=== PATIENT | female | born 2000 | race Two or more races ===

== ENCOUNTER 2024-06-24 06:30 | Outpatient (REF) | payer OTHER, SELFPAY ==
--- NOTE | ~2024-06-24 | US_ITS ---
CLINICAL HISTORY: IRREGULAR PERIODS, HAS IUD US pelvis transabdominal and transvaginal with Doppler Comparison: None Findings: Transabdominal scanning performed for overall anatomy. Transvaginal scanning performed for additional detail. Anteverted uterus is 7.3 cm length. Normal myometrium. No endometrial lesion, 2.8 mm thickness. IUD appears well-positioned within the uterine cavity Right ovary 3.9 x 3.1 x 3 cm. Left ovary 4.3 x 2.2 x 1.4 cm. Normal color Doppler with arterial/venous spectral tracing of both ovaries. No free fluid. IMPRESSION: 1. Normal pelvic ultrasound with Doppler. No evidence of ovarian torsion. This document has been electronically signed by: Kyle Parada MD on 06/24/2024 18:12:44
--- OUTSIDE RECORDS SUMMARY | 2024-06-24 06:34 | XMS_ITS | Clinical Summary ---
Author Organization [facility] Address [address] [place] [address] Care Team Providers Care Foster Care Worker Name Role Phone Tran Matute MD Primary Care Provider [phone] Allergies No known active allergies Medications acetaminophen (TYLENOL) 160 mg/5 mL suspension Use as directed on the package. 11/15/2023 Active Active Problems No known active problems Social History Tobacco Use Types Packs/Day Years Used Date Smoking Tobacco: Never Passive Smoke Exposure: Never Smokeless Tobacco: Never Tobacco Cessation:Counseling Given: Yes Comments No Sex and Gender Information Value Date Recorded Sex Assigned at Not on file Legal Sex Female 5:46 AM EDT Gender Identity Not on file Sexual Orientation Not on file Last Filed Vital Signs Vital Sign Reading Time Taken Comments Blood Pressure 112/74 11/24/2023 11:13 AM EDT Pulse 88 11/24/2023 11:13 AM EDT Temperature 36.4 ??C (97.5 ??F) 11/24/2023 11:13 AM E DT Respiratory Rate 20 11/15/2023 9:17 AM EDT Oxygen Saturation 99% 11/15/2023 9:17 AM EDT Inhaled Oxygen Concentration - - Weight 78 kg (172 lb) 11/15/2023 9:17 AM EDT Height 170.2 cm (5' 7 ) 11/15/2023 9:17 AM EDT Body Mass Index 26.94 11/15/2023 9:17 AM EDT Plan of Treatment Health Maintenance Due Date Last Done Comments Depression: Screening Annual ly using PHQ-2/9 in Adults 18 yrs or above (or HM Modifier)([facility]) 08/25/2019 Hepatitis C Virus Infection in Adolescents and Adults: Screening (or Modifier) ([facility]) 08/25/2019 SDOH Screening Reminder: Roberta santana for all adults ([facility]) 08/25/2019 DTaP/Tdap/Td Vaccines ([facility]) (1 - Tdap) 2020 Lipid Screening: Once for [place] men aged 20 to 45 yrs ([facility]) 2021 Cervical Cancer Screenin 1-65 yrs of age (or Modifier) 2022 Cervical Cancer Screening: P ap every 3 yrs pts age 21-65 2022 Cervical Cancer: Pap Screeni ng with Modifier timing ([facility]) 2022 Cervical Cancer: hrHPV alone or with cotesting Pap for Pts 30-65yrs screening every 5yrs ([facility]) 2022 Flu Vaccination: Yearly for ages 18mos through 64 years (or Modifier)([facility]) 11/27/2023 COVID-19 Vaccine Screening: Initial Series and Booster Status ([facility]) ( - 2023- season) 2023 Zoster/Shingles Vaccine Seri es Screening: Adults aged 18+ yrs (or HM Modifiers)([facility]) (1 of 2) 08/25/2051 Pneumococcal Vaccination Screening: Pts 0-19 & 19-64 yrs of age ([facility]) Aged Out No longer eligible b ased on patient's age to complete this topic Medical Devices Not on file Insurance [facility] [place] [id number] Care Teams Foster Care Worker Relationship Specialty Start Date End Date Tarn Matute MD [address] [phone] PCP - General Internal Medicine 11/21/22
== END 2024-06-24 06:31 | disposition home or self-care (01) ==
LOC: HO.UMASIMG 06:30
PROVIDERS: Visit Provider Nurse Practitioner Women's Health
DX: N92.6 Irregular menstruation, unspecified (principal); Z30.431 Encounter for routine checking of intrauterine contraceptive device
CPT/HCPCS: 76830; 76856

== ENCOUNTER → 2024-06-24 10:30 | Outpatient (BNV) | payer OTHER, SELFPAY | PROVIDERS: Visit Provider Specialist | DX: N92.6 Irregular menstruation, unspecified (principal); Z97.5 Presence of (intrauterine) contraceptive device | CPT/HCPCS: 76830; 76856 ==